=== PATIENT | male | born 1990 | race Caucasian/White ===

== ENCOUNTER 2019-04-30 16:42 | Emergency (ER) | payer BC ==
--- NOTE | 2019-04-30 17:19 | EDM.PDOC ---
ED HPI GENERAL MEDICAL PROBLEM - General Chief Complaint: Upper Extremity Injury/Pain Stated Complaint: FISH HOOK IN FINGER Time Seen by Provider: 04/30/19 17:00 Source of Information: Reports: Patient History Limitations: Reports: No Limitations - History of Present Illness INITIAL COMMENTS - FREE TEXT/NARRATIVE: 28 YO WM presents to ER complaining of a fish hook in his left middle finger x 1 hour. Pt reports he was taking hook out of fishes mouth when it moved and it lodged in his finger. Pt without any other complaints. tetanus booster 1 year ago. Onset: Today Location: Reports: Upper Extremity, Left Quality: Reports: Ache Severity: Mild Improves with: Reports: None Worsens with: Reports: None Associated Symptoms: Reports: No Other Symptoms - Related Data Home Meds: Home Meds Amoxicillin/Potassium Clav [Augmentin 875-125 Tablet] 1 each PO BID #14 tablet 04/30/19 [Rx] Review of Systems - Review of Systems Review Of Systems: See Below Constitutional: Reports: No Symptoms Eyes: Reports: No Symptoms Ears: Reports: No Symptoms Nose: Reports: No Symptoms Mouth/Throat: Reports: No Symptoms Respiratory: Reports: No Symptoms Cardiovascular: Reports: No Symptoms GI/Abdominal: Reports: No Symptoms Genitourinary: Reports: No Symptoms Musculoskeletal: Reports: No Symptoms Skin: Reports: Other (fish hook in left middle finger) Neurological: Reports: No Symptoms Psychiatric: Reports: No Symptoms ED EXAM, GENERAL - Physical Exam Exam: See Below Exam Limited By: No Limitations General Appearance: Alert, WD/WN, No Apparent Distress Throat/Mouth: Normal Inspection, Normal Lips, Normal Teeth, Normal Gums, Normal Oropharynx, Normal Voice, No Airway Compromise Head: Atraumatic, Normocephalic Neck: Normal Inspection, Supple, Non-Tender, Full Range of Motion Respiratory/Chest: No Respiratory Distress, Lungs Clear, Normal Breath Sounds, No Accessory Muscle Use, Chest Non-Tender Cardiovascular: Normal Peripheral Pulses, Regular Rate, Rhythm, No Edema, No Gallop, No JVD, No Murmur, No Rub GI/Abdominal: Normal Bowel Sounds, Soft, Non-Tender, No Organomegaly, No Distention, No Abnormal Bruit, No Mass Back Exam: Normal Inspection, Full Range of Motion, NT Extremities: Normal Inspection, Normal Range of Motion, Non-Tender, Normal Capillary Refill, No Pedal Edema Neurological: Alert, Oriented, CN II-XII Intact, Normal Cognition, Normal Gait, Normal Reflexes, No Motor/Sensory Deficits Psychiatric: Normal Affect, Normal Mood Skin Exam: Other (fish hook in left middle finger) Lymphatic: No Adenopathy ED TRAUMA EXTREMITY PROCEDURES - Foreign Body Removal Indication:: fish hook in left middle finger Consent Obtained: Patient Performing Doctor:: Tod Pack Anesthesia Type: Local Anesthesia Other:: digital block Findings:: treble hook removed with hemostats after digital block was performed with 10cc of lidocaine 1%. Pt tolerated procedure well. Complications:: No Departure - Departure Time of Disposition: 17:31 Disposition: Home, Self-Care 01 Condition: Good Clinical Impression: Foreign body of finger of left hand - Discharge Information Prescriptions: Amoxicillin/Potassium Clav [Augmentin 875-125 Tablet] 1 each PO BID #14 tablet Instructions: Hand or Foot Foreign Body, Adult Referrals: Blessing Vuong, [facility] [Primary Care Provider] - Forms: ED Department Discharge - Assessment/Plan Assessment:: 1. Fish hook removal from left middle finger Plan: 1. discharge home 2. keep wound clean and dry 3. wound care instructions given 4. take antibiotics if redness, swelling, discharge, worsening pain occur over the next 48 hours or return to ER for further evaluation and treatment 5. Augmentin 875mg twice/day x 7 days
[2019-04-30] MEDS ORDERED: Amoxicillin/Clavulanate K 875-125 MG Tab PO ONE (17:32)
== END 2019-04-30 17:50 | disposition home or self-care (01) ==
LOC: KA.ED 16:42
DX: S60.453A Superficial foreign body of left middle finger, initial encounter (principal); X58.XXXA Exposure to other specified factors, initial encounter
CPT/HCPCS: 64450; 99283-25